=== PATIENT | female | born 1950 | race Caucasian/White ===

== ENCOUNTER 2016-11-15 20:51 | Emergency (ER) | payer OTHER, BC ==
[2016-11-15] MEDS ORDERED: NS 1,000 ML IV ONE (21:20)
[2016-11-15 21:24] VITALS: TEMP 97.5
--- NOTE | 2016-11-15 21:34 | CPEKG ---
Heart Rate: 76 RR Interval: 789 P-R Interval: 192 QRSD Interval: 82 QT Interval: 392 QTC Interval: 441 P [place]: 78 QRS [place]: 81 T Wave [place]: 46 EKG Severity - BORDERLINE ECG - EKG Impression: SINUS RHYTHM EKG Impression: PROBABLE LEFT ATRIAL ABNORMALITY EKG Impression: BORDERLINE RIGHT AXIS DEVIATION Electronically Signed By: Teetee Lee 15-Nov-2016 23:55:25
[2016-11-15 22:04] LABS: % IMMATURE GRANULYOCYTES 0.4 % (0.0-1.1); ABSOLUTE IMMATURE GRANULOCYTES 0.04 10^3/uL (0.00-0.10); ADD DIFF? NO; ADD MORPH? NO; ADD SCAN? NO; ATYPICAL LYMPHOCYTE FLAG 10 (0-99); FRAGMENT RBC FLAG 0 (0-99); HEMATOCRIT 44.4 % (38.0-47.0); HEMOGLOBIN 14.9 g/dL (12.6-16.3); LEFT SHIFT FLG 0 (0-99); LIPEMIA HEMOLYSIS FLAG 80 (0-99); MEAN CELL HEMOGLOBIN 31.6 pg (27.9-34.1); MEAN CELL HEMOGLOBIN CONCENTR. 33.6 g/dL (32.4-36.7); MEAN CELL VOLUME 94.1 fL (81.5-99.8); MEAN PLATELET VOLUME 11.3 fL (8.7-11.7); PLATELET CLUMPS FLAG 10 (0-99); PLATELET COUNT 275 10^3/uL (150-400); RED BLOOD CELL COUNT 4.72 10^6/uL (4.18-5.33); RED CELL DISTRIBUTION WIDTH 12.4 % (11.5-15.2)
[2016-11-15 22:39] LABS: ANION GAP 14 mEq/L (8-16); CALCIUM 9.4 mg/dL (8.5-10.4); CARBON DIOXIDE 25 mEq/l (22-31); CHLORIDE 106 mEq/L (97-110); GLOMERULAR FILTRATION RATE 56; GLUCOSE 92 mg/dL (70-100); POTASSIUM 4.2 mEq/L (3.5-5.2); SODIUM 145 mEq/L (134-144)
[2016-11-15 22:47] LABS: TROPONIN I < 0.012 ng/mL (0-0.034)
[2016-11-15 22:48] VITALS: RESP 16
--- NOTE | 2016-11-15 23:05 | EDPHY ---
H & P Time Seen by Provider: 11/15/16 21:41 HPI/ROS: HPI Fainting. 65-year-old female by private vehicle with her friends. This patient is visiting with 2 over high school friends. They are all from [place]. They came to the [facility] yesterday to see her son play in a concert at a local theater in [place]. Today she got up early and she was hiking in the mountains for most the day. She thinks she got dehydrated. This evening they went out to dinner prior to the concert. She had an at a bowl marijuana which was described as half a gummy bear and she drank a vodka martini. She reports that she then started feeling tingly in her hands and lightheaded. She got up to go the bathroom but felt more lightheaded and return to her table. When she sat down at her table she reports that she blacked out for a few seconds. She then came to. She and her friends went back to her hotel room but she was still feeling woozy the brought her to the emergency department instead of going to her son's concert. She denies any associated headache, shortness of breath, palpitations, chest pain, fever. She does report that she has had an upper respiratory infection that she describes as influenza last week and this is still resolving. ROS: Constitutional: No fever, no chills. As above. Eyes: No discharge. No changes in vision. ENT: No sore throat. No nasal congestion or rhinorrhea. Respiratory: She has had a mild nonproductive cough which is getting better. No shortness of breath. Cardiac: No chest pain, no palpitations. Gastrointestinal: No abdominal pain, no vomiting, no diarrhea. Musculoskeletal: No back pain. No neck pain. No myalgias or arthralgias. Skin: No rashes. Neurological: No headache. No focal weakness or altered sensation. As above. Past medical history: She denies any significant past medical history. Social history: Here with her friends. As above. Physical Exam: General Appearance: Alert, no distress. This patient is responding to questions appropriately and in full sentences. This patient appears well- hydrated and well-nourished. Eyes: Pupils equal and round no pallor or injection. No lid edema, erythema or injection. ENT, Mouth: Mucous membranes are moist. The pharyngeal tissues are unremarkable. No edema or swelling. No asymmetry suggestive of abscess. No erythema or exudates. No tongue lacerations or abrasions. Respiratory: There are no retractions, lungs are clear to auscultation with good air movement bilaterally. Cardiovascular: Regular rate and rhythm. No murmur. Gastrointestinal: Abdomen is soft and nontender, no masses, bowel sounds normal. No focal tenderness at McBurney's point. No Avery sign. Neurological: Motor sensory function is grossly intact. Cranial nerves are normal. Gait is normal. Skin: Warm and dry, no rashes. Musculoskeletal: Neck is supple and nontender. Extremities are symmetrical. All joints range without pain or impingement. Psychiatric: No agitation. No depression. Database: EKG: EKG time is 9:32 p.m.; EKG shows a narrow complex normal sinus rhythm with a ventricular rate of 76. Borderline right axis deviation. The MA, QRS, QT intervals are within normal limits. There are no ST-T wave changes indicative of ischemic or injury pattern. No evidence of right heart strain. No evidence of WPW, Brugada syndrome, hypertrophic cardiomyopathy. Interpreted by me. Imaging: Procedures: Emergency department course: IV placed. She was placed on a child monitor. She was started on IV normal saline. 1 L was given over 1 hour. EKG and blood work obtained. 11:00 p.m., patient re-evaluated. Resting comfortably. Results of her EKG and blood work were discussed with her and her friends. She feels comfortable going home at this time. I feel she is safe for discharge. I discouraged the use of marijuana products and alcohol. She is here until Sunday. She was instructed to rest and avoid any strenuous activity. Keep herself well hydrated. Return to emergency department precautions were reviewed. All of her questions were answered. She was discharged in good condition with her friends. Differential Diagnosis: The differential diagnosis on this patient includes but is not limited to vasovagal syncope, reaction to alcohol and marijuana. Arrhythmia, myocardial infarction, pulmonary embolism, subarachnoid hemorrhage, anemia, aortic dissection unlikely. This represents a partial list of diagnoses considered. These considerations are based on history, physical exam, past history, reassessment and diagnostic testing. Smoking Status: Never smoked Constitutional: Initial Vital Signs Temperature (C) 36.4 C 02/15/17 21:20 Heart Rate 84 11/15/16 21:20 Respiratory Rate 18 11/15/16 21:20 Blood Pressure 138/64 H 11/15/16 21:20 O2 Sat (%) 94 11/15/16 21:20 O2 Delivery Mode Room Air Allergies/Adverse Reactions: No Known Allergies Allergy (Unverified 11/15/16 21:24) Home Medications: Medication Instructions Recorded Mucinex 11/15/16 Medical Decision Making - Data Points Laboratory Results: Laboratory Results 11/15/16 21:45 11/15/16 21:45 11/15/16 11/15/16 21:45 21:45 WBC 10.28 10^3/uL H 10^3/uL (3.80-9.50) RBC 4.72 10^6/uL 10^6/uL (4.18-5.33) Hgb 14.9 g/dL g/dL (12.6-16.3) Hct 44.4 % % (38.0-47.0) MCV 94.1 fL fL (81.5-99.8) MCH 31.6 pg pg (27.9-34.1) MCHC 33.6 g/dL g/dL (32.4-36.7) RDW 12.4 % % (11.5-15.2) Plt Count 275 10^3/uL 10^3/uL (150-400) MPV 11.3 fL fL (8.7-11.7) Neut % (Auto) 79.2 % H % (39.3-74.2) Lymph % (Auto) 12.8 % L % (15.0-45.0) [place] % (Auto) 5.8 % % (4.5-13.0) Eos % (Auto) 1.6 % % (0.6-7.6) Baso % (Auto) 0.2 % L % (0.3-1.7) Nucleat RBC Rel Count 0.0 % % (0.0-0.2) Absolute Neuts (auto) 8.14 10^3/uL H 10^3/uL (1.70-6.50) Absolute Lymphs (auto) 1.32 10^3/uL 10^3/uL (1.00-3.00) Absolute Monos (auto) 0.60 10^3/uL 10^3/uL (0.30-0.80) Absolute Eos (auto) 0.16 10^3/uL 10^3/uL (0.03-0.40) Absolute Basos (auto) 0.02 10^3/uL 10^3/uL (0.02-0.10) Absolute Nucleated RBC 0.00 10^3/uL 10^3/uL (0-0.01) Immature Gran % 0.4 % % (0.0-1.1) Immature Gran # 0.04 10^3/uL 10^3/uL (0.00-0.10) Sodium 145 mEq/L H mEq/L (134-144) Potassium 4.2 mEq/L mEq/L (3.5-5.2) Chloride 106 mEq/L mEq/L (97-110) Carbon Dioxide 25 mEq/l mEq/l (22-31) Anion Gap 14 mEq/L mEq/L (8-16) BUN 21 mg/dL mg/dL (7-23) Creatinine 1.0 mg/dL mg/dL (0.6-1.0) Estimated GFR 56 Glucose 92 mg/dL mg/dL (70-100) Calcium 9.4 mg/dL mg/dL (8.5-10.4) Troponin I < 0.012 ng/mL ng/mL (0-0.034) Medications Given: Discontinued Medications Sodium Chloride (Ns) 1,000 mls @ 0 mls/hr IV ONCE ONE PRN Reason: Wide Open Stop: 11/15/16 21:21 Last Admin: 11/15/16 21:45 Dose: 1,000 mls Departure - Departure Disposition: Home, Routine, Self-Care Clinical Impression: Syncope Condition: Good Instructions: Syncope (ED) Additional Instructions: Read and follow provided instructions. Follow-up with your primary care physician in when he returns home to [place]. Keep yourself well hydrated and get plenty of rest. No more strenuous activity on this visit. Avoid marijuana products and alcohol. Return to the emergency department for palpitations, headache, chest pain, shortness of breath, lightheadedness or other serious concerns. Referrals: DESIREE ABEL [Other] - As per Instructions
[2016-11-15 23:15] VITALS: BP 121/72; PULSE 74; O2SAT 97
== END 2016-11-15 23:15 | disposition home or self-care (01) ==
DX: R55 Syncope and collapse (principal)